=== PATIENT | male | born 1955 | race Caucasian/White ===

== ENCOUNTER 2021-04-05 13:57 | Emergency (ER) | payer OTHER ==
[~2021-04-05] VITALS: Ht 182.9 cm; Wt 117.9 kg
[2021-04-05] MEDS ORDERED: Percocet 5-3251 EACH PO (16:10)
== END 2021-04-05 16:13 | disposition home or self-care (01) ==
LOC: ER 13:57
DX: M25.511 Pain in right shoulder (principal); Z88.0 Allergy status to penicillin
CPT/HCPCS: 73030; 73060; 96374; 96375; 99283-25; A9270; J1170; J2405

== ENCOUNTER 2021-10-26 10:32 | Emergency (ER) | payer OTHER ==
[~2021-10-26] VITALS: Ht 182.9 cm; Wt 120.7 kg
[~2021-10-26 10:32] MED LIST: Percocet 5-3251 EACH PO
== END 2021-10-26 12:15 | disposition home or self-care (01) ==
LOC: ER 10:32
DX: L30.4 Erythema intertrigo (principal)
CPT/HCPCS: 99282

== ENCOUNTER 2022-09-12 13:23 | Emergency (ER) | payer OTHER ==
[~2022-09-12] VITALS: Ht 182.9 cm; Wt 120.2 kg
[2022-09-12 15:32] VITALS: BP 115/73
[2022-09-12] MEDS ORDERED: LISI20 PO (15:36)
[2022-09-12] MEDS ORDERED: VERA180ERB PO (15:36)
[2022-09-12] MEDS ORDERED: Amitriptyline H10 MG PO (15:36)
[2022-09-12] MEDS ORDERED: NEURONTIN300 MG PO (15:36)
[2022-09-12] MEDS ORDERED: LIPITOR80 MG PO (15:37)
[2022-09-12] MEDS ORDERED: Naprosyn500 MG PO (15:54)
[2022-09-12] MEDS ORDERED: Percocet 5-3251 EACH PO (15:54)
== END 2022-09-12 16:15 | disposition home or self-care (01) ==
LOC: ER 13:23
DX: M54.40 Lumbago with sciatica, unspecified side (principal); M54.16 Radiculopathy, lumbar region
CPT/HCPCS: 96372; 99283-25; A9270; J1885

== ENCOUNTER 2024-02-17 05:02 | Emergency (ER) | payer OTHER ==
[~2024-02-17] VITALS: Ht 182.9 cm; Wt 127.0 kg
[~2024-02-17 05:02] MED LIST changes: +Amitriptyline H10 MG PO; +LIPITOR80 MG PO; +LISI20 PO; +NEURONTIN300 MG PO; +Naprosyn500 MG PO; +VERA180ERB PO
[2024-02-17 05:19] VITALS: BP 119/74
== END 2024-02-17 07:35 | disposition home or self-care (01) ==
LOC: ER 05:02
DX: M79.661 Pain in right lower leg (principal); Z79.899 Other long term (current) drug therapy
CPT/HCPCS: 93971; 99283-25

== ENCOUNTER 2024-08-22 08:44 | Day surgery (SDC) | payer OTHER ==
[~2024-08-22] VITALS: Ht 182.9 cm; Wt 134.1 kg
[2024-08-22] VITALS (7 sets, daily range): BP systolic 118–136; BP diastolic 63–80
[2024-08-22] MEDS ORDERED: FENO160 PO (09:44)
[2024-08-22] MEDS ORDERED: ISOSORBIDE MONO30 MG PO (09:46)
[2024-08-22] MEDS ORDERED: OMEP20ER PO (09:51)
[2024-08-22] MEDS ORDERED: MELATONIN5 M1 PO (09:56)
[2024-08-22] MEDS ORDERED: NITR.4SL SL (10:00)
[2024-08-22] MEDS ORDERED: NS 250 ML IV ONE (10:45)
[2024-08-22] MEDS ORDERED: Nitroglycerin 2 MG/20 ML BTL ONE (10:45)
[2024-08-22] MEDS ORDERED: Heparin Sodium 1000 Units/ML 10ML MDV ONE ×2 (10:45→10:46)
[2024-08-22] MEDS ORDERED: NS 1,000 ML IV ONE ×2 (10:45→10:46)
[2024-08-22] MEDS ORDERED: Verapamil HCL 2.5 MG/ML 2ML Injection ONE (10:45)
[2024-08-22] MEDS ORDERED: Aspirin 325 MG Tab ONE (10:53)
[2024-08-22] MEDS ORDERED: Midazolam HCl 1MG / ML 2ML Vial ONE (11:09)
[2024-08-22] MEDS ORDERED: FentaNYL Citrate 50 MCG/ML 2 ML Injection ONE (11:09)
--- NOTE | 2024-08-22 12:10 | NUR ---
PT BACK TO RECOVERY ROOM IN [facility]. PT ALERT AND ORIENTED. PT SPOUSE NOT IN WAITING ROOM. TR BAND IN PLACE, 9 CC AIR. PT HAD ARMBOARD IN PLACE.
--- NOTE | 2024-08-22 12:30 | NUR ---
DR MARIO IN TO UPDATE PT. PT SITTING UP EATING LUNCH.
--- NOTE | 2024-08-22 13:46 | NUR ---
ATTEMPTED TO TAKE 2CC AIR OUT OF TR BAND, BUT PT BEGAN BLEEDING. 2 CC REPLACED, BLEEDING STOPPED. WILL CONTINUE TO MONITOR.
--- NOTE | 2024-08-22 14:11 | NUR ---
TR BAND FULLY DEFLATED. PT GETTING DRESSED.
== END 2024-08-22 14:30 | disposition home or self-care (01) ==
LOC: MHTC 08:44
DX: I25.119 Atherosclerotic heart disease of native coronary artery with unspecified angina pectoris (principal); I10 Essential (primary) hypertension; E78.5 Hyperlipidemia, unspecified; G47.33 Obstructive sleep apnea (adult) (pediatric); E66.01 Morbid (severe) obesity due to excess calories; Z79.899 Other long term (current) drug therapy; Z68.41 Body mass index [BMI] 40.0-44.9, adult
CPT/HCPCS: 76937; 93460; 99152; 99153; A9270; C1769; C1887; C1894; J1644; J2250; J3010; J7030; J7050; Q9967